=== PATIENT | female | born 1945 | race Caucasian/White ===

== ENCOUNTER 2019-12-01 10:41 | Emergency (ER) | payer MEDICARE, OTHER ==
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
[2019-12-01] MEDS ORDERED: LIDOCAINE 1% INJ-PF (10 MG/ML) 30 ML SDV INJ ONE (12:21)
[2019-12-01] MEDS ORDERED: IBUPROFEN 600 MG TABLET PO ONE (12:28)
[2019-12-01 13:28] VITALS: BP 160/66
== END 2019-12-01 13:33 | disposition home or self-care (01) ==
LOC: ER 10:41
DX: S81.012A Laceration without foreign body, left knee, initial encounter (principal); S86.922A Laceration of unspecified muscle(s) and tendon(s) at lower leg level, left leg, initial encounter; M25.562 Pain in left knee; V19.9XXA Pedal cyclist (driver) (passenger) injured in unspecified traffic accident, initial encounter
CPT/HCPCS: 99283; 73564; 12004; A9270; J3490